=== PATIENT | female | born 1985 | race Caucasian/White ===

== ENCOUNTER 2018-08-14 07:29 | Day surgery (SDC) | payer OTHER ==
[2018-08-10 14:03] VITALS: BMI 36.6
[2018-08-14] MEDS ORDERED: fentaNYL CITRATE 250 MCG/5 ML VIAL ONE ×2 (08:36→11:25)
[2018-08-14] MEDS ORDERED: MIDAZOLAM HCL 2 MG/2 ML SINGLE DOSE VIAL ONE (08:37)
[2018-08-14] MEDS ORDERED: PROPOFOL 20 ML ONE ×5 (08:37)
[2018-08-14] MEDS ORDERED: SUCCINYLCHOLINE CHLORIDE 200 MG/10 ML VIAL ONE ×2 (08:37→08:38)
[2018-08-14] MEDS ORDERED: ONDANSETRON 4 MG/2 ML VIAL IVPB PRN (13:53)
[2018-08-14] MEDS ORDERED: morphine SULFATE 4 MG/ML VIAL IVPUSH PRN (13:53)
--- NOTE | 2018-08-14 13:53 | OP ---
Operative Note - Note: Operative Date: 08/14/18 Pre-Operative Diagnosis: bilateral symptomatic macromastia Operation: bilateral reductio mammoplasty Post-Operative Diagnosis: Same as Pre-op Surgeon: Neftali Andersen Anesthesia: General Specimens Removed: bilateral breast tissue Operative Report Dictated: Yes
[2018-08-14] MEDS ORDERED: oxyCODONE HCL 5 MG TABLET PO PRN ×2 (13:55)
[2018-08-14] MEDS ORDERED: ONDANSETRON 4 MG/2 ML VIAL IVPUSH PRN (13:55)
[2018-08-14] MEDS ORDERED: PROMETHAZINE HCL 25 MG/1 ML VIAL IVPUSH PRN (13:55)
--- NOTE | 2018-08-14 13:55 | SURG ---
Surgery Respiratory Support Technician Note Respiratory Support Technician: Zenia Heredia PA-C Date of Service: 08/14/18 Diagnosis: bilateral symptomatic macromastia Procedure: bilateral reduction mammoplasty I was present for the entirety of the operative procedure. For further detail, please refer to operative report. Visit type - Case Type Case Type: Scheduled - Emergency Emergency Visit: No - New patient This patient is new to me today: Yes Date on this admission: 08/14/18
[2018-08-14] MEDS ORDERED: LACTATED RINGERS SOLUTION 1,000 ML IV SCH (14:00)
[2018-08-14] MEDS ORDERED: ONDANSETRON 4 MG/2 ML VIAL ONE (14:50)
[2018-08-14] MEDS ORDERED: ONDANSETRON 4 MG/2 ML VIAL IVPUSH ONE (15:02)
[2018-08-14] MEDS ORDERED: oxyCODONE HCL 5 MG TABLET ONE (15:41)
[2018-08-14] MEDS ORDERED: oxyCODONE HCL 5 MG TABLET PO ONE (15:45)
--- NOTE | 2018-08-14 19:33 | PN ---
Progress Note (short form) - Note Progress Note: Post op check: Drains with minimal output. No collection. VSS AF No evidence of bleed. Ambulating, Will advance to reg diet and observe 23 hours.
--- NOTE | 2018-08-14 20:41 | OP ---
DATE OF OPERATION: DATE OF DICTATION: 08/14/2018 ATTENDING SURGEON: Neftali Andersen M.D. [employer] MACHINE OPERATOR: Kem Ramírez PREOPERATIVE DIAGNOSIS: Bilateral symptomatic macromastia. POSTOPERATIVE DIAGNOSIS: Bilateral symptomatic macromastia. The patient is counseled on all risks, benefits, and alternatives to the procedure, understands and agrees to proceed. She is marked in a standing position, awake and aware of the new nipple position. Nipples are centered at 24 cm from the sternal notch bilaterally, an inverted T-redmond type pattern technique is planned. The patient is brought to the operating room, placed in supine position. Sequential compression stockings and KRISSY hose are applied. A Massey catheter is placed, this is removed at the end of the operation. A gram of Ancef is given preoperatively. She is prepped and draped in standard surgical fashion. Position is carefully checked by surgical and anesthesia teams and all pressure padding aids are appropriately used. Timeout is called. Patient procedure side and site are verified. The nipples are traced with a 42-mm cookie cutter bilaterally. A 10-cm with pedicle inferiorly based is then traced, the breast on the tourniquet, the pedicle is de-epithelialized with the exception of the nipple areolar. Attention is then directed towards the left breast where skin flaps are thickly developed superiorly laterally and medially down to the level of the chest wall. The pedicle is then developed leaving a wide base of glandular tissue perforating blood vessels on the pectoralis major muscle. The hemostasis meticulously achieved after copious irrigation. The skin is tailor tacked and attention is then directed toward the contralateral side, where a mirror image procedure is performed on the patient's right side. The resection weights are as follows: on the left it is 695 g, on the right it is 680 g. With skin tailor tacked on both sides, the patient is brought to a seated upright position where the symmetry of size, shape, and position of the folds and nipples are seen as excellent. Size 10 flat SUSI drains are brought out to the lateral extent of the wounds, secured with 2-0 silk drain sutures. The closure is performed with a half buried 2-0 nylon suture at the inverted T point. Skin is then closed with a series 3-0 Monocryl suture followed by a running subcuticular 3-0 Monocryl suture on the vertical and horizontal limbs. Nipple areolar is then set with series of interrupted buried deep dermal 3-0 Monocryl suture followed by a running subcuticular 4-0 Monocryl suture. Closure is performed same on both sides. Drains are placed to bulb suction. A compressive surgical bra and Arnoldo wrap, ABD gauze and Steri-Strips are applied. Nipples are pink and viable at the end of the procedure without any concern for vascular compromise. Patient is woken from anesthesia, transferred to recovery. NEFTALI ANDERSEN M.D. [id number]
[2018-08-14] MEDS: oxyCODONE HCL 5 MG TABLET PO PRN (22:17)
[2018-08-15] MEDS: oxyCODONE HCL 5 MG TABLET PO PRN (06:34)
[2018-08-15 11:56] VITALS: BP 136/67; PULSE 77; TEMP 98.6
--- NOTE | 2018-08-15 15:07 | PN ---
Progress Note (short form) - Note Progress Note: POD 1 Patient is comfortable without pain. SUSI drainage is 40/day/side- serosanguinous. No hematoma. Plan for discharge with instructions.
--- NOTE | 2018-08-17 15:15 | PATH ---
Surgical Pathology Report Patient Name: ISHA FOX Med. Rec. #: [id number] /Age/Gender: 1985 (Age: 33) / F Account: [id number] Location: [facility] Taken: 08/14/2018 Received: 08/14/2018 Reported: 08/16/2018 Physicians: Neftali Andersen Specimen(s) Received A: LEFT BREAST TISSUE B: RIGHT BREAST TISSUE Clinical History Back pain, bilateral breast reduction, gross only. Final Diagnosis A. LEFT BREAST TISSUE, REDUCTION: BREAST TISSUE WITH SKIN, GROSSLY UNREMARKABLE. B. RIGHT BREAST TISSUE, REDUCTION: BREAST TISSUE WITH SKIN, GROSSLY UNREMARKABLE. Electronically Signed Corinne Hernandez M.D. Gross Description A. Received in formalin, labeled "left breast tissue" is an irregular portion of breast tissue. The total specimen weight 722 grams and measures 39 x 12 x 3 cm. Segments of skin are present. The skin appears normal. Serial sections of the breast show predominantly mature yellow adipose tissue with scattered white-vergara fibrotic streaks. No masses identified. Gross examination only. B. Received in formalin, labeled "right breast tissue" are multiple irregular portions of breast tissue. The total specimen weight 735 grams and measures 19 x 18 x 5 cm. Segments of skin are present. The skin appears normal. Serial sections of the breast show predominantly mature yellow adipose tissue with scattered white-vergara fibrotic streaks. No masses identified. Gross examination only. __ KWS/08/15/2018 astrid/08/15/2018
== END 2018-08-15 03:30 | disposition home or self-care (01) ==
LOC: FASUSAT 07:29 → FASU 07:29 → FM/S 13:53 → FASUSAT 08-15 03:30
PROVIDERS: ATTEND Plastic Surgery
PROC: 0HBV0ZZ Excision of Bilateral Breast, Open Approach (ICD-10-PCS; principal; 2018-08-14 09:28)
DX: N62 Hypertrophy of breast (principal); M54.9 Dorsalgia, unspecified
CPT/HCPCS: 84703; 88300-TC; 94760

== ENCOUNTER 2020-07-06 14:09 | Emergency (ER) | payer OTHER ==
[2020-07-06 14:17] VITALS: BP 133/89; PULSE 72; TEMP 98; BMI 43.0
[2020-07-06] MEDS ORDERED: IBUPROFEN 600 MG TABLET (FP) PO ONE ×3 (14:48→15:38)
--- NOTE | 2020-07-06 14:50 | PDOC ---
History of Present Illness - General Chief Complaint: Injury Stated Complaint: FALL Time Seen by Provider: 07/06/20 14:19 History Source: Patient Exam Limitations: No Limitations - History of Present Illness Initial Comments: 07/06/20 14:45 35 year-old no past medical history presenting to the ED after a fall. Patient states she slipped on some wet pavement landing on her rear end. Patient is currently complaining of pain in her tailbone. No head trauma no LOC, No AC. Patient did not take any medicine for this pain presents to the ED. Patient is also complaining of difficulty walking secondary to the tailbone pain. Pt otherwise denies: fevers, chills, syncope, lightheadedness, dizziness, headaches, neck pain, chest pain, shortness of breath, palpitations, back pain, abdominal pain, nausea, vomiting, diarrhea, constipation. Past History - Medical History Allergies/Adverse Reactions: Allergies Allergy/AdvReac Type Severity Reaction Status Date / Time No Known Drug Allergies Allergy Verified 07/06/20 14:11 Home Medications: Ambulatory Orders Biotin 7,500 mcg PO DAILY 08/10/18 Multivitamins [Tab-A-Vit -] 1 tab PO DAILY 08/10/18 [place]-3 Fatty Acids/Fish Oil [Fish Oil 1,000 mg Capsule] 1 each PO DAILY 08/10/18 Anemia: Yes (HAS TAKEN IRON TABS IN THE PAST) Asthma: No Cancer: No Cardiac Disorders: No CVA: No COPD: No CHF: No Dementia: No Diabetes: No GI Disorders: No Disorders: No HTN: No Hypercholesterolemia: No Liver Disease: No Seizures: No Thyroid Disease: No - Surgical History Abdominal Surgery: No Appendectomy: No Cardiac Surgery: No Cholecystectomy: No Lung Surgery: No Neurologic Surgery: No Orthopedic Surgery: No - Reproductive History Is Patient Now?: No - Psycho-Social/Smoking History Smoking History: Current some day smoker Have you smoked in the past 12 months: No Number of Cigarettes Smoked Daily: 2 Information on smoking cessation initiated: No - Substance Abuse Hx (Audit-C & DAST Scrn) How often the patient has six or more drinks on one occasion: Less than monthly Score: In Men: 4 or > Positive; In Women: 3 or > Positive: 1 Screen Result (Pos requires Nsg. Audit-10AR): Negative In the last yr the pt used illegal drug/Rx for NonMed reason: No Score: Yes response is considered Positive: 0 Screen Result (Positive result requires Nsg. DAST-10): Negative *Physical Exam - Vital Signs Last Vital Signs Temp Pulse Resp BP Pulse Ox 98 F 72 16 133/89 100 07/06/20 14:11 07/06/20 14:11 07/06/20 14:11 07/06/20 14:11 07/06/20 14:11 - Physical Exam 07/06/20 14:47 Gen: AAOx 3, no acute distress, comfortable, no signs of respiratory distress HENT: atraumatic, normocephalic with no laceration or contusion. Nasal mucosa without erythema. Oropharynx without erythema or exudates. Mucous membranes moist. EYES: PERRL, EOM intact, conjunctiva pink NECK: supple; trachea midline; no JVD, no lymphadenopathy, or thyromegaly CV: RRR no murmurs, gallops, or rubs. CHEST: CTA b/l no wheezing, rales or rhonchi ABD: +BS/ND. no TTP; soft, no rebound, no guarding Back: TTP over sacrum and coccyx without swelling or crepitus EXTREMITY: no cyanosis or erythema. 2+ dorsalis pedis, posterior tibial, and radial pulse. No pedal edema; no calf swelling or tenderness SKIN: no rash, warm and dry, no diaphoresis HEME: no purpura or ecchymosis NEURO: normal speech, CN II-XII intact, sensation intact, normal gait, no cerebellar deficits MS: 5/5 strength in all extremities, FROM intact in all extremities. Medical Decision Making - Medical Decision Making 07/06/20 14:48 35 year old female s/p fall VSS XR sacrum IBU for pain Will reassess based on results XR shows no acute fracture or dislocation Pt reports relief with meds Pt is safe and stable for discharge with PCP follow up Supportive care instructions explained and given to pt. Reasons to return emergently to ER explained and given. Importance of follow up with PMD and other specialists as indicated stressed to pt. Pt verbalized understanding of instructions. Pt to follow up with PMD in 2 days. Discharge - Discharge Information Problems reviewed: Yes Clinical Impression/Diagnosis: Sacral pain Condition: Stable Disposition: HOME - Follow up/Referral Referrals: Din,Lianne, MD [Primary Care Provider] - - Patient Discharge Instructions Patient Printed Discharge Instructions: DI for Coccyx Fracture Additional Instructions: Take motrin for pain - Post Discharge Activity
== END 2020-07-06 15:42 | disposition home or self-care (01) ==
LOC: JERFT 14:09
DX: M53.3 Sacrococcygeal disorders, not elsewhere classified (principal)
CPT/HCPCS: 72220-TC-FY; 99283-25